=== PATIENT | female | born 1945 | race Caucasian/White ===

== ENCOUNTER → 2016-03-24 | Outpatient (CLI) | payer OTHER, BC ==
[~2016-03-24] MED LIST: ASCA500 PO; ASPCH81X PO; B-COTAB18 PO; CALC600T37 PO; CHOL100040 PO; GLUC750C4 PO; GLUCTAB7 PO; HYDR12.55 PO; LUTE15CA PO; LUTE20CA PO; MAGN500C PO; MULT-506 PO; chondroitin PO
--- NOTE | 2016-03-24 12:27 | DIAGNOSTIC IMAGING REPORT ---
MR ANGIOGRAM OF THE BRAIN CLINICAL HISTORY: Blurry vision. Hypertension. COMPARISON STUDY: No priors. TECHNIQUE: 3-D [id number] MR angiography of the intracranial circulation is performed. 3-D tumble views are created and assessed. IV contrast was not administered for this examination. FINDINGS: The [place] is developmentally complete. The internal carotid arteries are widely patent bilaterally, as are the anterior and middle cerebral arteries. The vertebrobasilar system and posterior cerebral arteries are widely patent. The left vertebral artery is dominant. There is no aneurysm, high-grade stenosis, or focal vessel cutoff seen throughout the intracranial circulation. The brain parenchyma is normal as visualized. IMPRESSION: Unremarkable MR angiogram of the brain. Electronically signed by: Karl Copeland M.D. 03/24/2016 12:26 PM Dictated Date/Time: 03/24/2016 12:23 PM
--- NOTE | 2016-03-30 12:31 | CODING QUERY MEDICAL NECESSITY ---
SUPPORTING DIAGNOSIS NEEDED A supporting diagnosis is required for the test/procedure performed on this patient in order for us to be reimbursed by the patient's insurance. Please provide a supporting diagnosis for the following test/procedure listed below next to the test name along with your signature. *If there is no additional diagnosis for this patient that would support the following test/procedure please document that below next to the test/procedure. Test(s)/Procedure(s) that require a supporting diagnosis: DOS 03/24 * MRA Head DIAGNOSIS: Provider Signature: Date: Thank you Esther Fregoso Health Information Management Once completed, please kindly fax back to [phone] For questions please call [phone]
== END | disposition home or self-care (01) ==
LOC: C.MRI 11:52
PROVIDERS: ATTEND Nurse Practitioner Family
DX: I10 Essential (primary) hypertension (principal); H34.8312 Tributary (branch) retinal vein occlusion, right eye, stable

== ENCOUNTER → 2016-08-25 | Outpatient (CLI) | payer OTHER, BC ==
[~2016-08-25] MED LIST changes: +ACET-1256 PO; +FNTTP25; +IBUP-1459 PO; +SILV1CRE73 TOP
--- NOTE | 2016-08-25 16:07 | MAMMOGRAPHY REPORT ---
ULTRASOUND OF RIGHT BREAST: 08/25/2016 CLINICAL HISTORY: 71-year-old woman with a personal history of right breast cancer and left breast at [facility] status post bilateral mastectomies. She presents with a new lump in the right axilla that she h as noticed since April. Bilateral axillary lymph nodes sampled during surgery yielded benign lymp h nodes. COMPARISON: Comparison is made to exams dated: 02/26/2014 mammogram, 02/26/2014 stereotactic biopsy, 01/17/2014 stereotactic biopsy, 01/17/2014 mammogram, 01/09/2014 mammogram, and 12/26/2013 mammogram - [facility]. FINDINGS: Targeted ultrasound was performed in the right axilla in the area of palpable lump pointed out by the patient. On palpation, there is an ovoid, 1.5 x 1.0 cm mass. While scanning over this p alpable abnormality, 2 lesions are identified on ultrasound. The first is a 9 mm lymph node with mil dly prominent cortex that measures up to 4 mm. Adjacent is anti-parallel hypoechoic shadowing tissue measuring approximately 6 x 10 mm. This area of palpable concern is just superior to the skin surgi amanda scar from axillary lymph node sampling and therefore this could represent scar tissue although an infiltrative mass cannot be completely excluded. Therefore, would recommend sampling of both the ly mph node and the hypoechoic shadowing tissue given that these are both thought to correlate with the palpable lump. Note is made of a few other morphologically normal yet somewhat plump lymph nodes mor e inferiorly in the right axilla, the cortex of the largest lymph node measures 2.5 mm. Correlation with any prior PET CTs would also be useful. IMPRESSION: ACR BI-RADS CATEGORY 4: SUSPICIOUS - FOLLOW-UP RECOMMENDED 1. Ultrasound guided fine needle aspiration and/or core needle biopsy is recommended in the right ax illa in an area of palpable concern thought to correlate with both a mildly prominent lymph node and hypoechoic shadowing tissue, as detailed above. These results were discussed with the patient at the time of the exam. The findings were also discus sed with her physician, Dr. Hoffman, who agrees with the above recommendations. Prior outside PET/CT i mages will also be requested at this time. Sarah Rawls M.D. ay/:08/25/2016 15:32:37 Multimedia Technician: Dr. Sarah Rawls, [facility] letter sent: Abnormal 4/5 BI-RADS Code: ACR BI-RADS Category 4: Suspicious
== END | disposition home or self-care (01) ==
LOC: C.MAMM 07:45
PROVIDERS: ATTEND Internal Medicine Hematology
DX: N64.89 Other specified disorders of breast (principal); N63 Unspecified lump in breast

== ENCOUNTER → 2016-08-31 | Outpatient (CLI) | payer OTHER, BC ==
--- NOTE | 2016-08-31 11:29 | Discharge Instructions ---
Discharge Instructions Procedure Procedure Date: Aug 31, 2016. Reason for visit: Right Axillary Masses. Discharge Discharge Date: Aug 31, 2016. Discharge Diagnosis: post right axillary mass and lymph node biopsies Instructions Activity Recommendations: Additional Limitations (see below) Return to School/Work: no limitations Recommended Home Diet: No Limitations Provider Instructions: ACTIVITY RECOMMENDATIONS: * No lifting, pushing, pulling or exercising the affected side for three days. RETURN TO SCHOOL/WORK: * You may return to work/school after the procedure, but do not perform any strenuous activities for 24 to 48 hours. MEDICATIONS: * Tylenol (two 325 mg) every four to six hours if needed for mild pain (if not allergic to Tylenol). DIET: * Resume previous diet. SPECIAL CARE INSTRUCTIONS: * Keep biopsy site dry for 24 hours. May shower after 24 hours, but do not soak (bathe) incision. * May remove Tegaderm (plastic patch) tomorrow AFTER showering. * Leave the steri-strips on for one week. Allow the steri-strips to fall off by themselves. If not off after one week, you may remove them. You may place a Bandaid crosswise over the strips, if desired. * Apply ice 10 minutes on and 10 minutes off as needed. * Wear a bra at bedtime to sleep more comfortably for 2-3 days. * Your referring physician should have the results after approximately 5 to 7 business days. * Call for unusual bleeding, fever, drainage, etc or if you have any questions call [phone] during normal business hours or after hours call Dr Rawls, . FOLLOW UP VISIT: Follow-up with Referring Physician as scheduled. Allergies Coded Allergies: No Known Allergies (Unverified , 08/20/14) Zaina Becerra Recommendations: Call your doctor if: * Temperature above 101 degrees * Pain not relieved by pain medicine ordered * There is increased drainage or redness from any incision * You have any unanswered questions or concerns. Your Doctors Instructions noted above were prepared by provider Sarah Rawls. Patient Signature Section: Patient Instructions Signature Page Yuly Walker Patient (or Guardian) Signature/Date: I have read and understand the instructions given to me by my caregivers. Caregiver/RN/Doctor Signature/Date: The above-named patient and/or guardian has received patient instructions on this date. + Original Patient Signature Page (only) stays with chart. Please make copy for patient.
--- NOTE | 2016-08-31 14:54 | MAMMOGRAPHY REPORT ---
ULTRASOUND GUIDED BIOPSY RIGHT BREAST: 08/31/2016 CLINICAL HISTORY: 71-year-old woman with a prior history of breast cancer status post bilateral maste ctomies, presented with a palpable lump in the right axilla. There is a hypoechoic shadowing mass an d adjacent lymph node with thickened cortex in the area of palpable concern and both lesions are the intended targets for ultrasound-guided core biopsy. COMPARISON: Comparison is made to exams dated: 08/25/2016 ultrasound, 01/09/2014 mammogram, 4 mammogram, 03/17/2011 mammogram, 02/05/2010 mammogram, and 01/29/2009 mammogram - [facility]. PATIENT CONSENT: The procedure, risks and benefits were discussed with the patient and informed writt en consent was obtained. Specific risks to this procedure include: bleeding, infection, puncture of a djacent structure, nontarget biopsy, sampling error, metal allergy, medication reaction and pain. PROCEDURE DESCRIPTION: A time out was performed and the right axilla was agreed as the site of biopsy . The skin was prepped and draped in the usual sterile fashion. First the hypoechoic solid-appearing shadowing mass was identified and targeted for biopsy. 1% buffered lidocaine without epinephrine wa s administered as local anesthesia. A skin incision was made. Through the incision, 3 samples were taken with a 14 gauge Achieve biopsy device. A ribbon-shaped metallic marker was placed at the biopsy site. Hemostasis was achieved after manual compression. The patient tolerated the procedure well and there was no immediate complication. Then the lymph node with thickened cortex, in the adjacent right axilla was identified and targeted f or biopsy. Additional buffered lidocaine without epinephrine was administered. Utilizing of the minesh e skin incision from the prior biopsy, 3 samples were obtained with an 18-gauge quick core biopsy dev ice. A wing-shaped metallic biopsy marker was placed within the biopsied lymph node. Hemostasis was achieved after manual compression. The patient tolerated the procedure well and there was no immedi ate consultation. All the samples were sent to the pathology department in appropriately labeled containers. Post proc edure imaging was not performed given the location high within the axilla. IMPRESSION: ULTRASOUND GUIDED BIOPSY Status post ultrasound guided core needle biopsy 2 in the right axilla, for a palpable lump thought to correlate with both a hypoechoic shadowing mass versus scar tissue and lymph node with thickened c ortex. Pathology results are pending. The patient will receive notification of the biopsy results from her referring physician. Sarah Rawls M.D. ay/:08/31/2016 11:39:20 Park Maintenance Technician: Trang GONSALES(Kandice)(Felix), [facility]
--- NOTE | 2016-08-31 14:54 | MAMMOGRAPHY REPORT ---
ULTRASOUND GUIDED BIOPSY: 08/31/2016 CLINICAL HISTORY: Status post ultrasound-guided core biopsy 2 in the right axilla. Please refer to the report from right axillary ultrasound guided core biopsy performed at the same [facility] for full detail. IMPRESSION: ULTRASOUND GUIDED BIOPSY Please refer to the report from right axillary ultrasound guided core biopsy performed at the same [facility] for full detail. Sarah Rawls M.D. ay/:08/31/2016 11:34:55 Fire Control Technician G: Trang GONSALES(Kandice)(M), [facility]
== END | disposition home or self-care (01) ==
LOC: C.MAMM 10:24
PROVIDERS: ATTEND Internal Medicine Hematology
DX: N63 Unspecified lump in breast (principal); C50.911 Malignant neoplasm of unspecified site of right female breast

== ENCOUNTER → 2016-09-14 | Outpatient (CLI) | payer OTHER, BC ==
[~2016-09-14] MED LIST changes: -ACET-1256 PO; -FNTTP25; -IBUP-1459 PO; -SILV1CRE73 TOP
--- NOTE | 2016-09-14 12:43 | DIAGNOSTIC IMAGING REPORT ---
PET/CT CLINICAL HISTORY: 71-year-old female with history of breast cancer status post bilateral mastectomies, palpable lump in the right axilla found to be metastatic carcinoma. COMPARISON STUDY: Outside PET/CT performed on 09/05/2014. TECHNIQUE: One hour following the IV administration of 13.84 mCi of F-18 FDG, PET/CT examination was performed from the orbital meatal line through the bony pelvis. Noncontrast CT is performed for the purposes of anatomic correlation and attenuation correction. Note that this does not reflect a diagnostic CT examination. Images were reviewed on a separate [employer] independent workstation. Fused images were obtained. Standard uptake values reported are maximum values within the region of interest expressed an gm/mL. FINDINGS: Head and neck: Physiologic activity within the visualized brain parenchyma and salivary glands. No FDG avid cervical lymphadenopathy. Photopenic subcentimeter right thyroid lobe nodule. Thorax: Postsurgical changes of bilateral mastectomy. In comparison to the prior PET/CT from 2014, interval development of FDG avid right axillary lymphadenopathy, which correlates with the site of recent right axillary lymph node biopsy. Additionally, borderline FDG avid right supraclavicular lymph node. Previously these lymph nodes were not enlarged and did not have elevated FDG avid study. These are enumerated below: -Right axillary lymph node measuring 14 x 7 mm (series 2 image 70) with a max SUV of 17 -An adjacent smaller and less FDG avid right axillary lymph node measuring 9 x 5 mm (series 2 image 67) with a max SUV of 2.3 -Right supraclavicular lymph node measuring 9 x 5 mm (series 2 image 48) with max SUV 2.5 No internal mammary or mediastinal lymphadenopathy. Physiologic uptake of FDG noted along the left ventricular free wall. Normal heart size. Atherosclerosis of the aortic arch. Coronary artery calcification. No pericardial or pleural effusion. Dependent opacities likely minimal atelectasis. No parenchymal FDG avidity or pulmonary nodule. Abdomen and pelvis: Physiologic metabolic activity in the liver, spleen, renal collecting system, and bladder. Prominent renal cysts bilaterally, the largest measuring 11.6 cm on the right. No hydronephrosis. Low-level bowel activity is likely within physical limits. No free fluid. Atherosclerosis of the normal caliber abdominal aorta. No FDG avid lymphadenopathy in the abdomen or pelvis. Musculoskeletal: Bone island noted at the right acetabulum. Degenerative changes of the lumbar spine. No FDG avid bony lesion. Bilateral atrophy of the quadriceps muscle. IMPRESSION: Status post bilateral mastectomies with FDG avid right axillary lymphadenopathy and a borderline avid subcentimeter right supraclavicular lymph node. Otherwise no evidence of distant metastatic disease in the chest, abdomen, or pelvis. Electronically signed by: Mat Bo 09/14/2016 12:42 PM Dictated Date/Time: 09/14/2016 12:05 PM
== END | disposition home or self-care (01) ==
LOC: C.PET 09:29
PROVIDERS: ATTEND Internal Medicine Hematology
DX: C50.911 Malignant neoplasm of unspecified site of right female breast (principal); C50.912 Malignant neoplasm of unspecified site of left female breast; C77.3 Secondary and unspecified malignant neoplasm of axilla and upper limb lymph nodes

== ENCOUNTER → 2016-10-05 | Outpatient (CLI) | payer OTHER, BC | END | disposition home or self-care (01) | LOC: C.MAMM 12:27 | PROVIDERS: ATTEND Internal Medicine Hematology | DX: Z85.3 Personal history of malignant neoplasm of breast (principal); M81.0 Age-related osteoporosis without current pathological fracture ==

== ENCOUNTER → 2017-03-23 | Outpatient (CLI) | payer OTHER, BC ==
[~2017-03-23] MED LIST changes: +ACET-1256 PO; +FNTTP25; -GLUCTAB7 PO; +IBUP-1459 PO; -LUTE15CA PO; +SILV1CRE73 TOP; +TAMO20TA9 PO
[2017-03-23 14:26] VITALS: BP 142/76; PULSE 76; TEMP 36.9; O2SAT 97
--- NOTE | 2017-03-23 16:00 | Radiation Oncology Follow-Up ---
Radiation Oncology Follow-Up Date of Visit Mar 23, 2017. 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 in her mid 40s, declined antiestrogen therapy and radiation Status post stereotactic biopsy 01/17/2014 of the left breast for DCIS, ER/GA positive Repeat biopsy 02/26/2014 DCIS left breast Status post lumpectomy 03/21/2014, positive en face margin Status post reexcision left breast lumpectomy site 05/02/2014 Invasive lobular carcinoma, pT1b, ER/GA positive and HER-2/xochilt negative Status post right breast MRI guided biopsy 06/13/2014 Invasive lobular carcinoma grade 2, ER/GA positive and HER-2/xochilt negative Status post bilateral mastectomies 08/20/2014 with sentinel lymph node biopsy on the right Left breast benign Right breast lobular carcinoma, pT1a pN0 Oncotype DX score of 20, patient declined chemotherapy, antiestrogen and radiation therapy Development of a right axillary mass April 2016 Status post biopsy 08/31/2016 revealing metastatic carcinoma, ER/GA positive and HER-2/xochilt negative Status post right axillary dissection 11/04/2016 14 of 14 nodes positive, metastatic carcinoma, lobular type, grade 2, Patient declines chemotherapy and antiestrogen therapy. Status post completion of radiation therapy 02/12/2017 she received 6240 cGy Last Edited By: Vera Henry on Feb 22, 2017 16:31 History of Present Illness Ms. Walker has a strong family history of breast cancer. She was initially diagnosed with DCIS of the right breast in her mid 40s. She underwent a lumpectomy but declined antiestrogen therapy and radiation. She continued to have screening mammograms through March 2011 which showed benign scattered calcifications in both breasts with postoperative changes in the right breast but no mammographic evidence of malignancy and continued follow-up recommended. On 12/26/2013 patient underwent repeat bilateral screening mammograms. This showed a cluster of increasing calcifications in the left upper inner quadrant with recommended spot magnification views. Additionally there were possible increased calcifications in the left breast at approximately 9:00 more medial and inferior to the other cluster also spot magnification views recommended. The remainder of the left breast as well as the right breast were otherwise stable. On 01/09/2014 the patient underwent a unilateral left digital diagnostic mammogram. The clustered amorphous microcalcifications in the upper inner anterior left breast were noted and recommended additional evaluation with a stereotactic guided biopsy. The second grouping of microcalcifications can be followed for short intervals pending pathology. On 01/17/2014 the patient underwent a stereotactic left breast biopsy at the 12: 00 left breast. This showed ductal carcinoma in situ, high-grade, cribriform type with comedonecrosis and calcifications. Estrogen and progesterone receptors were positive. Case: [id number]. It was then recommended that the second suspicious area be biopsied. On 02/26/2014 FREDDIE stereotactic biopsy was performed of the second cluster in the left upper inner quadrant with placement of marker. This showed a low-grade ductal carcinoma in situ without necrosis. Estrogen receptors were positive progesterone receptors were negative. Case: [id number]. Patient was seen by Dr. Mag Hodges who performed a left partial mastectomy on 03/22/2014. This confirmed ductal carcinoma in situ with multiple foci each less than 2 mm in greatest dimension. The architectural pattern was solid and cribriform with nuclear grade 1 and no necrosis seen. The DCIS focally involve the en face 12 to 3:00 margin and the anterior margin towards the 3 o'clock position. DCIS extends to within 1 mm of the posterior margin. Microcalcifications were present in both DCIS and nonneoplastic tissue. LCIS was identified. No invasive carcinoma was appreciated. Case: [id number]. Dr[address] Hodges recommended reexcision and this was performed on 05/02/2014. The reexcision of the left breast lumpectomy specimen showed residual invasive lobular carcinoma measuring 0.7 cm. There was lobular carcinoma in situ with negative margins. Histologic grade was a Everett grade 2. The closest margin for the invasive carcinoma was the superior margin at 0.2 cm. Estrogen receptors are strongly positive and progesterone receptors are strongly positive with HER-2/xochilt equivocal and negative by FISH analysis. Accession #: [id number]. The patient again declined antiestrogen therapy or radiation. Ms. Walker underwent BRCA1 and BRCA2 testing on 04/10/2014. No mutations were detected. The patient underwent bilateral breast MRIs on 2014. This showed a 2.3 x 1.1 x 1.6 cm enhancing mass in the right breast. Left breast showed postsurgical changes with no additional lesions noted. On patient underwent an MRI guided biopsy at the 6 o'clock position of the right breast. This showed an infiltrating carcinoma, lobular type, grade 2 with LCIS and focal atypical ductal hyperplasia. Estrogen receptors are strongly positive as were progesterone receptors. HER-2/xochilt oncogene expression was negative. Accession #: [id number]. The patient subsequently decided to proceed with bilateral mastectomies. These were performed by Dr. Hodges on 08/21/2014. The left breast mastectomy specimen showed changes consistent with previous biopsies and multifocal disease. There was however no DCIS or invasive carcinoma identified. A single benign lymph node was appreciated. In the right breast there was however found an invasive carcinoma with lobular features measuring up to 0.15 cm. The histologic grade was a Everett grade 2 of 3. No DCIS was identified. LCIS was present. There was no skin involvement, no nipple involvement and the margins were uninvolved by invasive carcinoma. A single benign lymph node was identified that was negative for metastatic disease. No lymphovascular invasion was identified. The final AJCC pathologic staging was therefore a pT1a pN0. Case: [id number]. This tissue was sent for Oncotype DX testing. The recurrence score was a 20 placing the patient in the lower intermediate risk category she was seen by Dr. Deniz Hoffman and based on the pathologic findings and Oncotype DX result no adjuvant chemotherapy or radiation therapy was recommended. The patient underwent a staging PET/CT scan on 09/05/2014. This was negative showing no evidence of local disease or distant metastatic disease. Hormonal treatment however was recommended and the patient declined. 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 A head MRI was performed on 03/24/2016. This was felt to be unremarkable. The patient returned to see Dr. Hoffman on 08/18/2016. At that time the patient stated that for the past 3 months she has noted a palpable soft tissue mass in the right axilla. Examination confirmed a mass measuring approximately 3 cm in the right axilla. Small left axillary lymph nodes measuring less than [address] Hoffman ordered a biopsy of the right axillary tissue that was performed on 08/31/2016. This was performed under ultrasound guided biopsy. This revealed a metastatic carcinoma consistent with metastatic adenocarcinoma of mammary origin. This lesion was estrogen receptor positive and progesterone receptor positive. It did not reveal amplification of HER-2/xochilt protein by IHC and was equivocal for HER-2/xochilt amplification by FISH analysis. A lymph node removed from the right axilla also showed metastatic carcinoma consistent with a mammary origin. Case: [id number]. Patient underwent a staging workup that included a PET/CT scan from 09/14/2016. This confirmed postsurgical changes from bilateral mastectomies. Comparing to the previous PET/CT scan from 2014 there was interval development of FDG avid right axillary lymphadenopathy which correlates with the site of the recent right axillary lymph node biopsy. Additionally a borderline FDG avid right supraclavicular lymph node was noted. These lymph nodes were not previously enlarged and did not have elevated FDG activity. Multiple lymph nodes were identified ranging in size 1.4 x 0.7 cm and an SUV max of 17-0.9 x 0.5 cm with an SUV max of 2.3. In the right super clavicle the suspicious lymph node measured 0.9 x 0.5 cm with a maximum SUV of 2.5. No internal mammary or mediastinal adenopathy was appreciated. No abnormal activity was noted in the abdomen or pelvis and no musculoskeletal abnormalities were appreciated. The patient return to discuss these findings with Dr. Hoffman. He discussed the natural history of her breast cancer. He discussed the use of systemic chemotherapy and hormonal therapy. Bone densitometry was ordered in anticipation of adjuvant therapy. The patient was seen by Dr. Hodges on 2016 to review surgical options. She again discussed the option of chemotherapy which the patient rejected. She then discussed axillary dissection. She indicated this could be done immediately or after 3 months of hormonal therapy. The patient ultimately decided against hormonal suppression and decide to proceed with a right axillary dissection. On 11/04/2016 Dr. Hodges performed a right axillary lymph node dissection. This showed metastatic carcinoma, lobular type, grade 2 in 14 of 14 lymph nodes dissected. There was extensive extranodal infiltration by infiltrating carcinoma which was a lobular carcinoma grade 2. Accession #: [id number]. Patient has recovered well from surgery. Dr. Hodges again recommended chemotherapy but patient has again declined. She discussed adjuvant radiation and the patient was willing to consider this. The patient is aware of the risks of right arm lymphedema but agreed to a meeting. She completed conventional radiation therapy 02/12/2017 she received 6240 cGy Interim History She's been doing well over this past month. The skin irritation steadily improved and resolved. There were some sore areas of the posterior shoulder that steadily improved. She noted the water temperature pressure of the shower would cause discomfort in this area. This has now resolved. The skin greatly improved with the use of the Aquaphor. She denies any pain currently. She is now started tamoxifen. She is tolerating this well. She has minimal hot flashes. She had some mild radiation esophagitis at the end of treatment. This has completely resolved. Allergies Coded Allergies: No Known Allergies (Unverified , 08/20/14) Home Medications Scheduled Ascorbic Acid (Vitamin C), 500 MG PO Q4 Aspirin (Aspirin Chewable), 81 MG PO DAILY B-Complex Vitamins (Vitamin B Complex), 2 TAB PO QPM Calcium (Calcium), 600 MG PO QPM Cholecalciferol (Vitamin D-1000), 1 TAB PO DAILY Glucosamine Sulfate (Glucosamine), 1 CAP PO DAILY Hydrochlorothiazide (Hydrochlorothiazide), 1 TAB PO DAILY Ibuprofen (Motrin), 400 MG PO TID Lutein (Lutein), 1 CAP PO 2XWK Magnesium Oxide (Mg Supplement (Magnesium), 1 CAP PO DAILY Multivitamin (Multivitamin), 1 TAB PO QAM Tamoxifen (Nolvadex), 20 MG PO DAILY [chondroitin], 600 MG PO DAILY Scheduled PRN Acetaminophen (Tylenol), 500 MG PO TID PRN for Pain Review of Systems Gastrointestinal: Symptoms: WNL Oral: Symptoms: No Problems Respiratory: Symptoms: WNL Urinary: Symptoms: WNL Skin: Symptoms: No Problems Other Skin Symptoms: Slight hyperpigmentation to skin on right chest/axilla area; Breast: Right Upper Arm Measurement: 29.0 Right Mid Arm Measurement: 20.0 Right Wrist Measurement: 14.0 Left Upper Arm Measurement: 25.5 Left Mid Arm Measurement: 17.0 Left Wrist Measurement: 13.8 Arm Dominence: Right Additional Notes: She completed a distress management report and answered "no" to all questions. Physical Exam Vital Signs Date Time Temp Pulse Resp B/P (MAP) Pulse Ox O2 Delivery O2 Flow Rate FiO2 03/23/17 14:26 36.9 76 16 142/76 97 Fatigue: None General Appearance: no apparent distress Eyes: normal inspection, EOMI ENT: normal ENT inspection, hearing grossly normal Neck: supple, no adenopathy, thyroid normal Respiratory/Chest: lungs clear, no respiratory distress, no accessory muscle use Breast: Status post bilateral mastectomies. There is resolving hyperpigmentation on the right. There are no areas of wet or dry desquamation. There are no masses or tenderness and no change of the axilla. Using the Rosburg score cosmesis she has a good outcome. On the left is status post S text me. There are no masses or tenderness and no axillary adenopathy. Cardiovascular: regular rate, rhythm, no gallop, no murmur Extremities: no pedal edema Neurologic/Psychiatric: no motor/sensory deficits, alert, normal mood/affect Skin: warm/dry Pain Management Patient Reports Pain: No Pain Management Plan She denies pain therefore requires no pain management. Laboratory Laboratory Results: not applicable Pathology Pathology Results: not applicable Imaging Imaging Studies: not applicable Assessment & Plan Plan: Patient is also seen and examined by Dr. Hoffman. She is going to continue follow-up with medical oncology and her primary care physician. She is going to continue on tamoxifen. She was reminded that she should have regular pelvic examinations now that she is on this medication. She is aware of the side effect of endometrial carcinoma and possible DVT or PE. We discussed the use of vitamin E for prevention of hot flashes. She has a follow-up visit scheduled with Dr. Hoffman as well as being scheduled for a PET scan. We asked her to return to our office in 6 months. She may call if she has any questions or concerns in the interim. Assessment & Plan (Attending) ADDENDUM: I agree with note created by Vera Henry PA-C. I reviewed the patient's chart and information with her. I have examined and evaluated the patient. I reviewed relevant clinical information and answered the patient's and /or family's questions. INDUSTRIAL METHODS CONSULTANT Total Time In Follow-Up I spent 20 minutes speaking to the patient and performed an examination. I spent 15 minutes reviewing information and completing this note. [place] Total Time (Attending) In Follow-Up I spent 15 minutes examining and counseling the patient. INDUSTRIAL METHODS CONSULTANT Copy To Mag Hodges MD; Deniz Hoffman M.D.; Yohn, Ashlee C.R.N.P. Problem Qualifiers (1) Breast cancer metastasized to axillary lymph node: Laterality: right Qualified Codes: C50.911 - Malignant neoplasm of unspecified site of right female breast; C77.3 - Secondary and unspecified malignant neoplasm of axilla and upper limb lymph nodes
== END | disposition home or self-care (01) ==
LOC: C.ONC 14:16
PROVIDERS: ATTEND Physician Assistant Medical
DX: Z08 Encounter for follow-up examination after completed treatment for malignant neoplasm (principal); Z92.3 Personal history of irradiation; Z85.3 Personal history of malignant neoplasm of breast; Z80.7 Family history of other malignant neoplasms of lymphoid, hematopoietic and related tissues

== ENCOUNTER → 2017-05-27 | Outpatient (CLI) | payer OTHER, BC ==
[~2017-05-27] MED LIST changes: -FNTTP25; +GADAVIST IV PRN; -SILV1CRE73 TOP
--- NOTE | 2017-05-27 17:56 | DIAGNOSTIC IMAGING REPORT ---
MRI OF THE BRAIN COMBO CLINICAL HISTORY: Dysphagia. Muscle wasting and atrophy. Breast cancer. COMPARISON STUDY: No priors. TECHNIQUE: MRI of the brain was performed utilizing various T1 and T2-weighted sequences in the axial, sagittal, and coronal planes. Contrast-enhanced sequences were acquired following the administration of 5.5 cc of Gadavist. FINDINGS: Brain parenchyma: There are age-related involutional changes noting mild patchy subcortical and periventricular microangiopathic disease. There is no hemorrhage or mass effect. There is no restricted diffusion to suggest acute ischemia. No enhancing mass lesion is identified on the postcontrast images. Carlisle-white matter differentiation is preserved. No extra-axial fluid collection is seen. The cerebellar tonsils are normal in configuration. Ventricles, sulci, and cisterns: Prominent secondary to involutional change. Pituitary and sella: Unremarkable. Intracranial vasculature: Normal flow voids are maintained at the skull base. Orbits: The bony orbits are grossly intact. Orbital contents are normal in appearance. Sinuses and mastoids: Clear. Calvarium: No destructive bony lesion is clearly seen. Cervical cord: Partially visualized cervical spinal cord is normal in morphology and signal intensity. IMPRESSION: There is no acute intracranial abnormality. Specifically, there is no evidence of intracranial metastatic disease as clinically queried. Electronically signed by: Karl Copeland M.D. 05/27/2017 5:55 PM Dictated Date/Time: 05/27/2017 5:49 PM
== END | disposition home or self-care (01) ==
LOC: C.MRI 16:36
PROVIDERS: ATTEND Nurse Practitioner Family
DX: M62.50 Muscle wasting and atrophy, not elsewhere classified, unspecified site (principal); R29.898 Other symptoms and signs involving the musculoskeletal system; R13.10 Dysphagia, unspecified; Z85.3 Personal history of malignant neoplasm of breast

== ENCOUNTER → 2017-06-03 | Outpatient (CLI) | payer OTHER, BC ==
[~2017-06-03] MED LIST changes: -GADAVIST IV PRN
[2017-06-03 11:29] LABS: ALBUMIN 3.7 gm/dl (3.4-5.0); ALT/SGPT 23 U/L (12-78); AST/SGOT 29 U/L (15-37); BLOOD UREA NITROGEN 20 mg/dl (7-18); CALCIUM 9.1 mg/dl (8.5-10.1); CARBON DIOXIDE 29 mmol/L (21-32); CREATININE 0.99 mg/dl (0.60-1.20); GLUCOSE 88 mg/dl (70-99); POTASSIUM 4.5 mmol/L (3.5-5.1); SODIUM 138 mmol/L (136-145)
[2017-06-03 11:32] LABS: ALKALINE PHOSPHATASE 62 U/L (45-117); TOTAL PROTEIN 7.6 gm/dl (6.4-8.2)
[2017-06-07 23:38] LABS: ANA SCREEN TC 249X NEGATIVE (NEGATIVE); ANTI-SS-A <1.0 NEG AI (<1.0 NEG); ANTI-SS-B <1.0 NEG AI (<1.0 NEG); COMPLEMENT C3 TC 44859W 111 MG/DL (90-180); COMPLEMENT C4 TC 44982E 18 MG/DL (16-47)
[2017-06-08 18:17] LABS: ACETYLCHOLINE RECEPT BLOCKING <15 % inhibit (<15)
== END | disposition home or self-care (01) ==
LOC: C.LABBC 08:13
PROVIDERS: ATTEND Physician Assistant
DX: M62.81 Muscle weakness (generalized) (principal)

== ENCOUNTER → 2017-06-04 | Outpatient (CLI) | payer OTHER, BC ==
[~2017-06-04] MED LIST changes: +GADAVIST IV PRN
--- NOTE | 2017-06-04 11:19 | DIAGNOSTIC IMAGING REPORT ---
MRI CERVICAL SPINE COMBO CLINICAL HISTORY: M62.81 Muscle [id number] BREAST CARCINOMA TECHNIQUE: Sagittal and axial T1, T2 and STIR images were obtained. Imaging was acquired before and after the administration of 5 cc of intravenous Gadavist. COMPARISON STUDY: No previous studies for comparison. There are multifocal areas of marrow replacement, most pronounced at the T3 and T4 levels. The findings are suspicious for multifocal skeletal metastasis. C2-3: There is no evidence of disc bulge or focal herniation. There is no spinal or foraminal stenosis. C3-4: There is no evidence of disc bulge or focal herniation. There is no spinal stenosis. There is bilateral foraminal narrowing C4-5: There are no disc bulges or focal herniations. There is no spinal or foraminal stenosis. C5-6 :There is a mild circumferential disc bulge. There is no significant spinal stenosis. There is mild left-sided foraminal narrowing C6-7: There is a mild circumferential disc bulge. There is no significant spinal stenosis. There is no significant foraminal narrowing C7-T1: There is no evidence of disc bulge or focal herniation. There is no evidence of spinal or foraminal stenosis. No spinal cord lesions are visualized. Postcontrast images reveal no pathologic cord enhancement. There is no pathologic epidural enhancement. IMPRESSION: 1. Multifocal marrow lesions, suspicious for skeletal metastasis. The largest lesion is located at the T3 level 2. Mild multilevel spondylitic changes. No focal disc herniations identified. Bilateral foraminal narrowing at the C3-4 level. Mild left-sided foraminal narrowing at C5-6 level. No significant spinal stenosis. 3. No cord lesions identified. No evidence for epidural disease. Electronically signed by: Rakesh Joy M.D. 06/04/2017 11:17 AM Dictated Date/Time: 06/04/2017 11:06 AM
== END | disposition home or self-care (01) ==
LOC: C.MRI 09:27
PROVIDERS: ATTEND Physician Assistant
DX: M62.81 Muscle weakness (generalized) (principal)

== ENCOUNTER → 2017-06-14 | Outpatient (CLI) | payer OTHER, BC ==
[~2017-06-14] MED LIST changes: -GADAVIST IV PRN
--- NOTE | 2017-06-14 10:24 | DIAGNOSTIC IMAGING REPORT ---
PET/CT SKULL-THIGH CLINICAL HISTORY: BREAST CANCER COMPARISON STUDY: 09/14/2016 FINDINGS: The patient was injected with 14.3 mCi of F 18 labeled FDG. Findings standard induction phase, PET/CT scanning is performed from the skull base the upper thigh region. Activity within the neck is felt to be physiologic. Within the thorax, there is no FDG avid adenopathy. There are postsurgical changes within the right axilla. There is infiltration of the fat, likely posttreatment basis. There is a non-FDG avid 15 mm cystic lesion within the right axilla. This is likely postsurgical. There is a new 9 mm nodule within the right lung apex. This is not FDG avid, but a small metastasis is not excluded. Close follow-up is recommended. Within the abdomen, there is a new 13 mm FDG avid mass within the right lobe of the liver with an SUV maximum of 5.5. This is consistent with a metastatic deposit. There is a second FDG avid lesion within the right hepatic lobe with SUV maximum of 4.4. There is no definite CT correlate on this noncontrast study. This nevertheless likely represents an additional hepatic metastasis. There is physiologic urinary tract and bowel activity. There are bilateral renal cysts including a 10 cm right renal cyst. Since the prior study, the patient has developed innumerable FDG avid sclerotic skeletal lesions consistent with widespread skeletal metastasis. The most FDG avid lesion is a T4 lesion with SUV maximum of 4.9. IMPRESSION: 1. Significant interval disease progression 2. Interval development of innumerable FDG avid sclerotic skeletal lesions consistent with widespread skeletal metastasis 3. Interval development of 2 FDG avid hepatic lesions consistent with hepatic metastasis 4. Interval development of a nonspecific 9 mm non-FDG avid right apical pulmonary nodule Electronically signed by: Rakesh Joy M.D. 06/14/2017 10:23 AM Dictated Date/Time: 06/14/2017 10:03 AM
== END | disposition home or self-care (01) ==
LOC: C.PET 07:29
PROVIDERS: ATTEND Physician Assistant
DX: C77.3 Secondary and unspecified malignant neoplasm of axilla and upper limb lymph nodes (principal); C50.911 Malignant neoplasm of unspecified site of right female breast; Z17.0 Estrogen receptor positive status [ER+]